=== PATIENT | female | born 1980 | race Caucasian/White ===

== ENCOUNTER → 2016-10-17 | Outpatient (REF) | payer BC ==
[2016-10-17 17:02] LABS: ALBUMIN 3.8 GM/DL (3.2-5.2); ALBUMIN/GLOBULIN RATIO 1.46 (1.00-1.93); ALKALINE PHOSPHATASE 49 U/L (45-117); ALT/SGPT 29 U/L (12-78); ANION GAP 10 MEQ/L (8-16); AST/SGOT 16 U/L (15-37); BILIRUBIN,TOTAL 0.4 MG/DL (0.2-1.0); BLOOD UREA NITROGEN 15 MG/DL (7-18); CALCIUM LEVEL 8.6 MG/DL (8.5-10.1); CARBON DIOXIDE LEVEL 28 MEQ/L (21-32); CHLORIDE LEVEL 106 MEQ/L (98-107); GLOMERULAR FILTRATION RATE > 60.0 (>60); GLUCOSE, FASTING 92 MG/DL (70-105); POTASSIUM SERUM 4.1 MEQ/L (3.5-5.1); SODIUM LEVEL 144 MEQ/L (136-145); TOTAL PROTEIN 6.4 GM/DL (6.4-8.2)
== END ==
LOC: M LABDRAW1 15:42
PROVIDERS: ATTEND Nurse Practitioner Women's Health
DX: E66.9 Obesity, unspecified (principal); Z68.34 Body mass index [BMI] 34.0-34.9, adult

== ENCOUNTER → 2021-06-22 | Outpatient (CLI) | payer OTHER ==
--- NOTE | 2021-06-22 14:25 | REP ---
INDICATION: PAIN IN R HIP, R/O LABRAL TEAR. COMPARISON: None. TECHNIQUE: Axial T1 and T2. Sagittal T2. Coronal T1, fat suppressed proton density, fat suppressed T2 and STIR. FINDINGS: The femoral heads are spherical in shape and symmetric in appearance. There is no abnormal focal chondral or subchondral signal seen arising from the femoral or acetabular component of either hip. There is no joint effusion. The cortical and marrow signal seen throughout the examination is within normal limits. The imaged portion of the sacroiliac joints show them to be unremarkable. There is no evidence of a mass or mass effect. Dedicated small [id number] magnified images of the right hip in all 3 planes shows smooth cartilaginous surfaces. There is an incidental Kadeem's pit. IMPRESSION: MRI findings are within normal limits. <Electronically signed by Shane Nicole > 06/22/21 [id number]
== END ==
LOC: M PLAIMG 09:55
PROVIDERS: ATTEND Orthopaedic Surgery
DX: M25.551 Pain in right hip (principal)

== ENCOUNTER → 2021-08-27 | Outpatient (CLI) | payer OTHER | LOC: M PLARAD 09:17 | PROVIDERS: ATTEND Orthopaedic Surgery | DX: M54.2 Cervicalgia (principal) ==

== ENCOUNTER 2023-02-21 12:28 | Day surgery (SDC) | payer OTHER ==
[~2023-02-21] VITALS: Ht 160 cm; Wt 100.7 kg
[~2023-02-21 12:28] MED LIST: NS 1,000 ML IV ONE
[2023-02-21] MEDS ORDERED: NALT50TA4 PO (14:27)
[2023-02-21] MEDS ORDERED: ADDE20TA PO (14:28)
[2023-02-21] MEDS ORDERED: PROP20TA72 PO (14:31)
[2023-02-21] MEDS ORDERED: ALPR0.5T6 PO (14:33)
[2023-02-21] MEDS ORDERED: TIZA4CAP PO (14:34)
[2023-02-21] MEDS ORDERED: FLUC10TA PO (14:35)
[2023-02-21] MEDS ORDERED: ONDANSETRON 4MG 2ML VIAL As Ordered ONE (14:46)
[2023-02-21] MEDS ORDERED: LIDOCAINE 2% 100MG/5ML SDV (FOR ANES.) As Ordered ONE (14:56)
[2023-02-21] MEDS ORDERED: propofoL 200 MG/20 ML VIAL As Ordered ONE ×2 (14:56→15:09)
[2023-02-21] MEDS ORDERED: GLYCOPYRROLATE INJ 0.2 MG/ML 2 ML VIAL As Ordered ONE (15:05)
[2023-02-21] MEDS ORDERED: GLUCAGON INJ 1MG VIAL As Ordered ONE (15:06)
[2023-02-21 16:00] VITALS: BP 125/73; TEMP 97.2; O2SAT 100
== END 2023-02-21 16:03 | disposition home or self-care (01) ==
LOC: M OPP 12:28
PROVIDERS: ATTEND Internal Medicine Gastroenterology
DX: K63.5 Polyp of colon (principal); K62.5 Hemorrhage of anus and rectum; K64.8 Other hemorrhoids; K59.00 Constipation, unspecified
CPT/HCPCS: 45380; 45385; 88305; J1610; J2405

== ENCOUNTER → 2024-11-22 | Outpatient (REF) | payer OTHER ==
[~2024-11-22] MED LIST changes: +ADDE20TA PO; +ALPR0.5T6 PO; +FLUC10TA PO; +NALT50TA4 PO; -NS 1,000 ML IV ONE; +PROP20TA72 PO; +TIZA4CAP PO
[2024-11-22 15:53] LABS: C REACTIVE PROTEIN QUANTITATIV 0.74 MG/DL (<1.0); LDH LACTATE DEHYDROGENASE 233 U/L (120-246)
[2024-11-22 15:54] LABS: ALBUMIN 3.9 G/DL (3.2-5.2); ALKALINE PHOSPHATASE 70 U/L (35-104); ALT/SGPT 59 U/L (7.0-40); AST/SGOT 28 U/L (<34); BILIRUBIN,TOTAL 0.5 MG/DL (0.3-1.2); BLOOD UREA NITROGEN 16 MG/DL (9-23); CALCIUM LEVEL 9.4 MG/DL (8.5-10.1); CARBON DIOXIDE LEVEL 31 MMOL/L (20-31); CHLORIDE LEVEL 104 MMOL/L (98-107); CPK CREATINE PHOSPHOKINASE 175 U/L (34-145); CREATININE FOR GFR 0.63 MG/DL (0.55-1.30); GLOMERULAR FILTRATION RATE > 60.0 (>58); GLUCOSE, FASTING 91 MG/DL (60-100); POTASSIUM SERUM 4.6 MMOL/L (3.5-5.1); SODIUM LEVEL 144 MMOL/L (136-145); TOTAL PROTEIN 7.1 G/DL (5.7-8.2)
[2024-11-22 16:02] LABS: BASO % 0.5 % (0.0-1.0); EOS # 0.1 10^3/uL (0.0-0.5); HEMATOCRIT 41.3 % (36.0-47.0); HEMOGLOBIN 13.5 g/dl (12.0-15.5); LYMPH # 2.2 10^3/uL (1.5-5.0); LYMPH % 36.3 % (24.0-44.0); MEAN CORPUSCULAR HGB CONC 32.7 g/dl (32.0-36.5); MEAN CORPUSCULAR VOLUME 91.8 fl (80.0-96.0); MONO # 0.3 10^3/uL (0.0-0.8); MONO % 5.7 % (2.0-8.0); NEUTROPHILS # 3.3 10^3/uL (1.5-8.5); NEUTROPHILS % 55.2 % (36.0-66.0); PLATELET COUNT, AUTOMATED 334 10^3/uL (150-450)
[2024-11-22 16:11] LABS: ERYTHROCYTE SEDIMENTATION RATE 23 mm/hr (0-20)
== END ==
LOC: M SFHCRHEU 11:27
PROVIDERS: ATTEND Internal Medicine Rheumatology
DX: R52 Pain, unspecified (principal); R53.83 Other fatigue; R70.0 Elevated erythrocyte sedimentation rate; K92.1 Melena